=== PATIENT | male | born 1995 | race Two or more races ===

== ENCOUNTER 2017-10-25 19:31 | Emergency (ER) | payer SELFPAY ==
[~2017-10-25] VITALS: Ht 175.3 cm; Wt 90.7 kg
[2017-10-25 19:45] VITALS: BP 145/74
[2017-10-25] MEDS ORDERED: IBUPROFEN 600 MG TABLET PO ONE ×2 (20:22→20:30)
== END 2017-10-25 21:16 | disposition home or self-care (01) ==
LOC: ER 19:34
DX: R07.89 Other chest pain (principal)
CPT/HCPCS: 71045; 93005; 99284; A4606; Z7610

== ENCOUNTER 2023-09-03 18:44 | Emergency (ER) | payer MEDICAID, OTHER ==
[~2023-09-03] VITALS: Ht 170.2 cm; Wt 77.1 kg
[2023-09-03] MEDS ORDERED: IBUPROFEN 600 MG TABLET ONE (18:59)
[2023-09-03] MEDS: IBUPROFEN 600 MG TABLET PO ONE (19:00)
[2023-09-03 20:00] VITALS: BP 133/105; TEMP 98.3; O2SAT 99
== END 2023-09-03 20:09 | disposition home or self-care (01) ==
LOC: ER 18:44
DX: R07.89 Other chest pain (principal)
CPT/HCPCS: 71045-TC